=== PATIENT | male | born 2000 | race Caucasian/White ===

== ENCOUNTER → 2021-10-04 | Outpatient (CLI) | payer BC ==
[~2021-10-04] MED LIST: CODACEE120 PO
[2021-10-05 17:14] LABS: CHLAMYDIA TRACHOMATIS, NAA Positive (Negative)
== END ==
LOC: LAB SHORT 15:45
PROVIDERS: Physician Assistant
DX: N34.1 Nonspecific urethritis (principal)
CPT/HCPCS: 87086; 87491; 87591